=== PATIENT | male | born 1975 | race Caucasian/White ===

== ENCOUNTER 2020-04-08 17:41 | Emergency (ER) | payer MEDICARE, MEDICAID, SELFPAY ==
--- NOTE | 2020-04-08 17:51 | CT_ITS ---
EXAMINATION: CT HEAD WITHOUT CONTRAST CLINICAL INFORMATION: First time seizure COMPARISON: None TECHNIQUE: Contiguous axial imaging was performed from the skull base to vertex without intravenous administration of contrast. This CT examination was performed using dose optimization techniques as appropriate, variously including the following: *Automated exposure control *Adjustment of mA and/or kV according to patient size (this includes techniques or standardized protocols for targeted exams where dose is matched to indication/reason for exam; i.e. extremities or head) *Use of iterative reconstruction technique DLP: 926 mGy-cm FINDINGS: There is no evidence of acute intracranial hemorrhage or territorial infarction. No abnormal mass effect or midline shift is seen. [place] to white matter differentiation is well preserved. No extra-axial fluid collections are identified. The ventricles are normal in size. There is no abnormal attenuation within the brain parenchyma. The osseous structures and soft tissues are normal. The mastoid air cells and visualized portions of the paranasal sinuses are well aerated. CT/CT head/brain wo con IMPRESSION: * No acute intracranial pathology. * No evidence of intracranial mass, or other etiology for the patient's new onset seizures. Recommend MRI of the brain (seizure protocol without and with contrast for further evaluation.
--- NOTE | 2020-04-08 18:00 | PC.NURSE ---
PT ARRIVES VIA EMS FROM CORRECTION [facility] BY [facility]. COLLIN HEEL PRICKER [phone]. PER COLLIN, PT HAS NO HCP, NO FAMILY, NO OFFICIAL HX OF SEIZURES. 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 UPON ARRIVAL, PT TOOK HIMISELF OFF STRETCHER IN HALLWAY, UPSET. PT QUITE AGITATED. STAFF ABLE TO CONVINCE HIM TO REMAIN IN BED, SEIZURE PADS IN PLACE, PT REFUSING TO BE PLACED ON GAS MAKER HELPER.
--- NOTE | 2020-04-08 18:04 | ED_ITS ---
HPI - General Adult General Chief complaint: Seizure Stated complaint: seizure Time Seen by Provider: 04/08/20 17:51 Source: EMS Mode of arrival: EMS Limitations: other (unwilling to talk, hx of schizophrenia) History of Present Illness HPI narrative: pt coming from a [place] [facility], pt is unwilling to speak. Per staff at the [place] [facility], pt had a seizure lasting approx 2 minutes, pt incontinent of urine, per staff this is the first time that the patient has a seizure, no previous hx. Per EMS, on their arrival pt was post ictal. On arrival to the ED, pt at baseline which is combative, does not like anyone to touch him or come near him, refusing vitals, unwilling to speak. 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 complaint: seizure Related Data Allergies Allergy/AdvReac Type Severity Reaction Status Date / Time No Known Allergies Allergy Verified 04/08/20 18:31 Review of Systems Review of Systems: Yes Other (unobtainable, pt unwilling to talk, stating that he's fine ) [facility] Past Medical History Medical History (Updated 04/08/20 @ 20:10 by Alessia Galdamez MD) Schizophrenia Social History Social History Advance Directives: No Advance Directives Information Provided: No Physical Exam Vital Signs: Vital Signs: Last Vital Signs Temp 98.3 F 04/08/20 18:27 Pulse 132 H 04/08/20 18:27 Resp 22 H 04/08/20 18:27 BP 124/64 04/08/20 18:27 Pulse Ox 97 04/08/20 18:27 Body Mass Index 22.1 Const: General: no acute distress, anxious and combative HENMT: Head: Yes normal to inspection Eyes: General: appearance normal, both eyes and all related structures Neck: Neck: Yes normal visual inspection Chest: Chest palpation & inspection: normal inspection of the chest Resp: Other: declined auscultation Effort & Inspection: normal respiratory effort Cardio: Other: declined auscultation GI: Other: declined abdominal palpation : Other: pt's pants wet with urine Back/Spine/Pelvis: Other: grossly normal Skin: Other: grossly normal Neuro: Other: CN 2-12 grossly intact, ambulatory Extrem: General: Yes normal to inspection Psych: Other: per staff, pt now at baseline, anxious, combative Appearance: other (pants wet with urine) Course Course Course Narrative: pt unwilling to cooperate, a staff memeber of the [place] [facility] coming soon at bedside, pt tried forcefully leaving and walking out of the ER, pt returned to his room by security. Staff came from The [place] [facility], no at bedside. Patient is somewhat cooperative, patient agreed to blood work and head CT. I discussed the lab and imaging with the patient, no acute findings. I discussed with the [place] [facility] staff marketing operations manager that if the patient keeps having recurrent seizures, he will need a Neurology consult and to be placed on antie pileptic medications, at this time, only with 1 seizure we will not start him on medications for seizures. Medical Decision Making Lab Data Result diagrams: 04/08/20 19:17 04/08/20 19:17 Labs: Lab Results 04/08/20 04/08/20 Range/Units 19:17 19:17 WBC 8.5 (4.8-10.8) X10*3/uL RBC 4.47 L (4.60-5.80) X10*6/uL Hgb 13.7 L (14.0-18.0) g/dl Hct 41.0 L (42-52) % MCV 91.7 (80-98) fL MCH 30.6 (27.0-33.0) pg MCHC 33.4 (31.0-36.0) g/dl RDW 13.0 (11.0-16.0) % Plt Count 253 (160-400) X10*3/uL MPV 10.2 (9.4-12.4) fL Immature Gran % (Auto) 1.2 H (0.0-0.4) % Neut % (Auto) 75.8 H (45-73) % Lymph % (Auto) 13.6 L (20-40) % [place] % (Auto) 8.0 (2-11) % Eos % (Auto) 0.9 (0-4) % Baso % (Auto) 0.5 (0-2) % Lymph # (Auto) 1.2 (1.2-4.9) X10*3/uL [place] # (Auto) 0.7 (0.1-1.2) X10*3/uL Eos # (Auto) 0.1 (0.0-0.4) X10*3/uL Baso # (Auto) 0.0 (0.0-0.2) X10*3/uL Abs Immat Gran (auto) 0.10 H (0.00-0.03) X10*3/uL Absolute Neuts (auto) 6.4 (2.0-8.3) X10*3/uL Absolute Nucleated RBC 0.000 (0.0-0.012) X10*3/uL Nucleated RBC % (auto) 0.0 (0.0-0.2) /100WBC Sodium 140 (135-145) mmol/L Potassium 3.5 (3.3-5.1) mmol/l Chloride 105 (96-108) mmol/L Carbon Dioxide 23 (22-29) mmol/L Anion Gap 16 (12-20) BUN 15 (9-16) mg/dL Creatinine 1.26 (0.5-1.4) mg/dL Estim Creat Clear Calc 76.6 Estimated GFR > 60 Random Glucose 117 H (60-115) mg/dL Calcium 9.1 (8.4-10.2) mg/dL Total Bilirubin 1.0 (0.0-1.0) mg/dL Direct Bilirubin 0.4 (0.0-0.5) mg/dL AST 19 (5-37) U/L ALT 28 (0-40) U/L Alkaline Phosphatase 58 (39-117) U/L Total Protein 6.8 (6.5-8.0) g/dL Albumin 4.4 (3.5-5.0) g/dL Discharge Plan Discharge Clinical Impression: Generalized seizure Patient Disposition: Home, Self-Care Instructions: Generalized Tonic Clonic Seizures (ED) Additional Instructions: if you have any further seizures, please return to the emergency room, at this time he will not be started on medications for seizures but if they keep recurring, you will need a Neurology consult and possibly be started on m edications to prevent further seizures. Please follow-up with your primary care physician tomorrow. If you have any worsening or new symptoms, please return to the emergency room or call 911
[2020-04-08 18:27] VITALS: BP 124/64; PULSE 132; RESP 22; TEMP 36.8; O2SAT 97; BMI 22.1
--- NOTE | 2020-04-08 18:59 | PC.NURSE ---
PT ABLE TOT BE CONVINCED TO UNDERGO CT SCAN
--- NOTE | 2020-04-08 19:00 | PC.NURSE ---
COLLIN SCIENTIST IMMUNOLOGY TO BEDSIDE
[2020-04-08 19:25] LABS: Basophils Percent Auto 0.5 % (0-2); Eosinophils Absolute Auto 0.1 X10*3/uL (0.0-0.4); Eosinophils Percent Auto 0.9 % (0-4); Hemoglobin 13.7 g/dl (14.0-18.0); Imm Gran Pct Auto 1.2 % (0.0-0.4); Lymphocytes Absolute Auto 1.2 X10*3/uL (1.2-4.9); Lymphocytes Percent Auto 13.6 % (20-40); MANUAL DIFF FLAG NO; Mean Corpuscular HGB Conc 33.4 g/dl (31.0-36.0); Mean Corpuscular Hemoglobin 30.6 pg (27.0-33.0); Mean Corpuscular Volume 91.7 fL (80-98); Mean Platelet Volume 10.2 fL (9.4-12.4); Monocytes Absolute Auto 0.7 X10*3/uL (0.1-1.2); Neutrophils Absolute Auto 6.4 X10*3/uL (2.0-8.3); Neutrophils Percent Auto 75.8 % (45-73); Platelet Count 253 X10*3/uL (160-400); Red Blood Count 4.47 X10*6/uL (4.60-5.80); White Blood Count 8.5 X10*3/uL (4.8-10.8)
--- NOTE | 2020-04-08 19:27 | PC.NURSE ---
PT RESTING IN STRETCHER WITH [employer] STAFF AT BEDSIDE WITH PT. PT DENIES ANY COMPLAINTS AND IS CALM AND COOPERATIVE AT THIS TIME. LABS DRAWN TO LAB. AWAITING PENDING LABS. WILL CONTINUE TO MONITOR PT.
[2020-04-08 19:51] LABS: Alanine Aminotransferase 28 U/L (0-40); Albumin Level 4.4 g/dL (3.5-5.0); Alkaline Phosphatase 58 U/L (39-117); Anion Gap 16 (12-20); Aspartate Amino Transferase 19 U/L (5-37); Bilirubin Direct 0.4 mg/dL (0.0-0.5); Blood Urea Nitrogen 15 mg/dL (9-16); Calcium 9.1 mg/dL (8.4-10.2); Carbon Dioxide 23 mmol/L (22-29); Chloride 105 mmol/L (96-108); Creatinine Clr Calc Pharmacy 76.6; Estimated Glomerular Filt Rate > 60; Glucose Random 117 mg/dL (60-115); Potassium 3.5 mmol/l (3.3-5.1); Sodium 140 mmol/L (135-145); Total Protein 6.8 g/dL (6.5-8.0)
== END 2020-04-08 20:19 | disposition home or self-care (01) ==
PROVIDERS: Emergency Provider Emergency Medicine; PCP Internal Medicine
DX: G40.409 Other generalized epilepsy and epileptic syndromes, not intractable, without status epilepticus (principal); F20.9 Schizophrenia, unspecified
CPT/HCPCS: 36415; 70450; 80048; 80076; 85025; 99283; 99284